=== PATIENT | male | born 1970 | race Caucasian/White ===

== ENCOUNTER → 2016-08-30 | Outpatient (CLI) | payer BC ==
[~2016-08-30] MED LIST: CATAPRES0.1 MG PO; COUMADIN4 MG PO; ECOTRIN81 MG PO; LOVENOX100 MG/1 M SQ; NORVASC5 MG PO; TOPROL XL 100100 MG PO; TOPROL XL50 MG PO; ZESTRIL20 MG PO
== END ==
LOC: CT 06:28
DX: R10.32 Left lower quadrant pain (principal); R19.7 Diarrhea, unspecified
CPT/HCPCS: J7050; Q9962

== ENCOUNTER → 2020-03-30 | Outpatient (CLI) | payer BC, OTHER | LOC: KOH-I 09:30 | DX: M25.572 Pain in left ankle and joints of left foot (principal); R93.6 Abnormal findings on diagnostic imaging of limbs | CPT/HCPCS: 73700 ==

== ENCOUNTER → 2020-06-22 | Outpatient (CLI) | payer BC, OTHER | LOC: CT 08:44 | DX: R10.31 Right lower quadrant pain (principal) | CPT/HCPCS: 36415; 82565; 84520; Q9967 ==

== ENCOUNTER → 2020-08-03 | Outpatient (CLI) | payer BC, OTHER ==
[2020-08-03 12:46] LABS: BUN/CREATININE RATIO 16 (0-10)
== END ==
LOC: LAB 11:16
DX: I10 Essential (primary) hypertension (principal)
CPT/HCPCS: 36415; 80048

== ENCOUNTER → 2020-09-22 | Outpatient (CLI) | payer BC, OTHER ==
[2020-09-22 16:48] LABS: HEMOGLOBIN 11.2 gm/dl (14.0-17.5)
== END ==
LOC: LAB 14:22
DX: K92.2 Gastrointestinal hemorrhage, unspecified (principal)
CPT/HCPCS: 36415; 85014; 85018

== ENCOUNTER → 2020-10-09 | Outpatient (CLI) | payer BC ==
[2020-10-09 15:28] LABS: HEMOGLOBIN 12.2 gm/dl (14.0-17.5); RED BLOOD COUNT 4.21 M/UL (4.20-5.50); WHITE BLOOD COUNT 5.9 K/UL (4.5-11.0)
== END ==
LOC: LAB 14:51
PROVIDERS: Specialist
DX: D64.9 Anemia, unspecified (principal)
CPT/HCPCS: 85025

== ENCOUNTER 2020-10-14 13:02 | Emergency (ER) | payer BC ==
[2020-10-14 14:21] LABS: HEMOGLOBIN 12.6 gm/dl (14.0-17.5); RED BLOOD COUNT 4.11 M/UL (4.20-5.50); WHITE BLOOD COUNT 5.1 K/UL (4.5-11.0)
[2020-10-14 14:56] LABS: BUN/CREATININE RATIO 16 (0-10)
== END 2020-10-14 21:49 | disposition home or self-care (01) ==
LOC: ER1 13:02
PROVIDERS: Emergency Medicine
DX: R51.9 Headache, unspecified (principal); R55 Syncope and collapse; Z20.822 Contact with and (suspected) exposure to COVID-19; I10 Essential (primary) hypertension
CPT/HCPCS: 70496; 70498; 71045; 80053; 82550; 82553; 83874; 84484; 85025; 85610; 85730; 93005; 99284; Q9967; U0002

== ENCOUNTER → 2020-10-26 | Outpatient (CLI) | payer BC | LOC: RAD 10:17 | DX: M54.2 Cervicalgia (principal); M47.812 Spondylosis without myelopathy or radiculopathy, cervical region | CPT/HCPCS: 72040 ==

== ENCOUNTER → 2020-11-11 | Outpatient (CLI) | payer BC ==
[2020-11-11 17:49] LABS: HEMOGLOBIN 13.5 gm/dl (14.0-17.5); RED BLOOD COUNT 4.5 M/UL (4.20-5.50); WHITE BLOOD COUNT 7.6 K/UL (4.5-11.0)
[2020-11-11 18:27] LABS: BUN/CREATININE RATIO 13 (0-10)
== END ==
LOC: LAB 16:58
PROVIDERS: Nurse Practitioner Family
DX: Z51.81 Encounter for therapeutic drug level monitoring (principal); Z79.899 Other long term (current) drug therapy
CPT/HCPCS: 80053; 85025; 85652; 86140

== ENCOUNTER 2021-02-17 14:51 | Emergency (ER) | payer BC ==
[2021-02-17] MEDS ORDERED: HYDROCODONE-AC1 EACH PO (20:16)
== END 2021-02-17 20:22 | disposition home or self-care (01) ==
LOC: ER1 14:51
DX: S46.211A Strain of muscle, fascia and tendon of other parts of biceps, right arm, initial encounter (principal); M25.561 Pain in right knee; M25.512 Pain in left shoulder; M25.552 Pain in left hip; I10 Essential (primary) hypertension; Z95.0 Presence of cardiac pacemaker; X50.9XXA Other and unspecified overexertion or strenuous movements or postures, initial encounter
CPT/HCPCS: 71045; 73030; 73080; 73522; 73564; 96372; 99283; J1885; J2360

== ENCOUNTER 2021-07-02 17:36 | Emergency (ER) | payer BC ==
[~2021-07-02 17:36] MED LIST changes: +HYDROCODONE-AC1 EACH PO
[2021-07-02 18:18] LABS: HEMOGLOBIN 13.5 gm/dl (14.0-17.5); RED BLOOD COUNT 4.43 M/UL (4.20-5.50); WHITE BLOOD COUNT 13.7 K/UL (4.5-11.0)
[2021-07-02 18:39] LABS: BUN/CREATININE RATIO 13 (0-10)
== END 2021-07-02 22:35 | disposition home or self-care (01) ==
LOC: ER1 17:36
DX: G89.18 Other acute postprocedural pain (principal); M25.561 Pain in right knee; Z88.8 Allergy status to other drugs, medicaments and biological substances
CPT/HCPCS: 73502; 80053; 83605; 85025; 85379; 85610; 85730; 93005; 96372; 96374; 96375; 96376; 99284; J1170; J1650; J1885; J2405; J3360